=== PATIENT | female | born 1995 | race Caucasian/White ===

== ENCOUNTER 2019-12-04 20:50 | Emergency (ER) | payer SELFPAY ==
[~2019-12-04] VITALS: Ht 175.3 cm; Wt 65.8 kg
[2019-12-04 21:05] VITALS: BP 122/74
--- NOTE | 2019-12-04 21:08 | NUR ---
TO LOBBY A/W BED AMBULATORY
--- NOTE | 2019-12-04 21:26 | NUR ---
PT AMBULATED TO ER BED 03
--- NOTE | 2019-12-04 21:34 | NUR ---
ASSESSMENT COMPLETE WITH PATIENT SITTING UP IN BED. AAO. BED LOW AND LOCKED WITH SIDE RAIL UP ON ONE SIDE. BIB SELF REPORTS THAT AROUND 1930 SHE HAD A SUDDEN ONSET OF SEVERE HEAD PRESSURE THAT LASTED ABOUT 1 HOUR. STATES AFTER THE HEAD PRESSURE STARTED SHE HAD NUMBNESS AND TINGLING IN HER ARMS AND LEGS. REPORTS THAT NOW THE SYMPTOMS HAVE RESOLVED BUT STILL HAS MINIMAL TINGLING IN HER ARMS AND HANDS. PATIENT REPORTS NO COUGH, FEVERS, NVD. LUNGS CLEAR, ABD SOFT AND NON-TENDER. HX: DEPRESSION TAKING ANTIDEPRESSENT.
--- NOTE | 2019-12-04 22:10 | NUR ---
PATIENT SITTING UP IN BED. VSS ON MONITOR.
--- NOTE | 2019-12-04 22:57 | NUR ---
Patient discharged with v/s stable. Written and verbal after care instructions given and explained. Patient alert, oriented and verbalized understanding of instructions. Ambulatory with steady gait. All questions addressed prior to discharge. ID band removed. Patient advised to follow up with PMD. Rx of VISTARIL given. Patient educated on indication of medication including possible reaction and side effects. Opportunity to ask questions provided and answered.
[2019-12-04 22:58] VITALS: BP 102/70
== END 2019-12-04 22:57 | disposition home or self-care (01) ==
LOC: MED 20:50
DX: F41.1 Generalized anxiety disorder (principal); F32.9 Major depressive disorder, single episode, unspecified
CPT/HCPCS: 71045; 93005; 99283; Q0092